=== PATIENT | female | born 1965 | race Caucasian/White ===

== ENCOUNTER 2016-10-09 20:29 | Emergency (ER) | payer OTHER ==
[~2016-10-09 20:29] MED LIST: CETIRIZINE HCL10 MG PO; ELAVIL 50 MG TA50 MG PO; FUROSEMIDE40 MG PO; GLUCOPHAGE1000 MG PO; HUMULIN R100 UNITS/ SQ; HYDROCHLOROTHIA25 MG PO; IMDUR ER TAB 3030 MG PO; JANUVIA 100 MG100 MG PO; LISINOPRIL-HCT1 EACH PO; LOPRESSOR 50 MG50 MG PO; METHOCARBAMOL750 MG PO; METOCLOPRAMIDE10 MG PO; NEURONTIN 400400 MG PO; NORVASC 5 MG TAB5 MG PO; PANTOPRAZOLE SO40 MG PO; PRAVASTATIN SOD20 MG PO; TIZANIDINE HCL4 MG PO; TOPIRAMATE100 MG PO; TRAZODONE HCL150 MG PO; VISTARIL 50 MG50 MG PO
[2017-03-09] MEDS ORDERED: METHOCARBAMOL750 MG PO (04:40)
[2017-03-09] MEDS ORDERED: XARELTO20 MG PO (04:46)
[2017-03-10] MEDS ORDERED: FERROUS SULFAT325 M2 PO (22:26)
[2017-03-10] MEDS ORDERED: ULTRAM50 MG PO (22:26)
[2017-03-10] MEDS ORDERED: LISINOPRIL-HCT1 EACH PO (22:50)
== END 2016-10-09 22:30 | disposition left against medical advice (07) ==
LOC: ER1 20:29
DX: Z53.21 Procedure and treatment not carried out due to patient leaving prior to being seen by health care provider (principal)
CPT/HCPCS: 93005

== ENCOUNTER 2016-10-20 20:59 | Observation (INO) | payer OTHER ==
[~2016-10-20] VITALS: Ht 170.2 cm; Wt 131.5 kg
[2016-10-20 23:23] LABS: HEMOGLOBIN 10.5 gm/dl (12.3-15.3); RED BLOOD COUNT 4.72 M/UL (4.00-5.10)
[2016-10-20 23:37] LABS: BUN/CREATININE RATIO 14 (0-10)
[2016-10-21] MEDS ORDERED: ALPRAZOLAM0.5 MG PO (11:54)
[2016-10-21] MEDS ORDERED: BUSPIRONE HCL15 MG PO (12:03)
[2016-10-21] MEDS ORDERED: LORTAB 10-3251 EACH PO (12:04)
[2016-10-21] MEDS ORDERED: SYNTHROID150 MCG PO (12:04)
[2016-10-21] MEDS ORDERED: ZOFRAN4 MG PO (12:06)
[2016-10-22 05:21] LABS: HEMOGLOBIN 9.6 gm/dl (12.3-15.3); RED BLOOD COUNT 4.38 M/UL (4.00-5.10); WHITE BLOOD COUNT 6.5 K/UL (4.5-11.0)
[2016-10-22 05:39] LABS: BUN/CREATININE RATIO 15 (0-10)
[2016-10-23] MEDS ORDERED: XARELTO20 MG PO (17:14)
[2016-10-23] MEDS ORDERED: ASPIR 8181 MG PO (17:14)
[2017-03-09] MEDS ORDERED: METHOCARBAMOL750 MG PO (04:40)
[2017-03-09] MEDS ORDERED: XARELTO20 MG PO (04:46)
[2017-03-10] MEDS ORDERED: ULTRAM50 MG PO (22:26)
[2017-03-10] MEDS ORDERED: FERROUS SULFAT325 M2 PO (22:26)
[2017-03-10] MEDS ORDERED: LISINOPRIL-HCT1 EACH PO (22:50)
== END 2016-10-23 18:00 | disposition home or self-care (01) ==
LOC: ER1 20:59 → ZEROF 10-21 02:00 → MED SURG 4 10-21 02:00
PROVIDERS: Emergency Medicine; Family Medicine; ADMIT Internal Medicine
DX: R53.1 Weakness (principal); R47.81 Slurred speech; E66.9 Obesity, unspecified; I10 Essential (primary) hypertension; E11.9 Type 2 diabetes mellitus without complications; E78.5 Hyperlipidemia, unspecified; I48.0 Paroxysmal atrial fibrillation; Z86.69 Personal history of other diseases of the nervous system and sense organs; Z88.0 Allergy status to penicillin; Z88.2 Allergy status to sulfonamides; Z88.8 Allergy status to other drugs, medicaments and biological substances; Z90.49 Acquired absence of other specified parts of digestive tract; Z90.710 Acquired absence of both cervix and uterus; Z96.653 Presence of artificial knee joint, bilateral; Z98.890 Other specified postprocedural states
CPT/HCPCS: 36415; 70450; 71010; 80048; 80053; 80061; 82607; 82962; 83690; 83880; 84439; 84443; 84484; 85025; 85027; 85610; 85730; 92610; 93005; 96372; 96374; 96375; 96376; 97110; 97116; 97530; 99285; G0378; J1642; J1650; J1815; J2270; J2405; Q0177

== ENCOUNTER 2020-08-07 15:23 | Emergency (ER) | payer OTHER ==
[~2020-08-07 15:23] MED LIST changes: +ALPRAZOLAM0.5 MG PO; +AMBIEN10 MG PO; +AMITRIPTYLINE100 MG PO; +ANUSOL HC SUPP1 SUPP PR; +ASPIR 8181 MG PO; +ATORVASTATIN CA20 MG PO; +BENTYL 20MG TAB20 MG PO; +BLOOD TEST; +BUSPAR 10MG10 MG PO; +BUSPIRONE HCL15 MG PO; +CARDIZEM CD240 MG PO; +CARDIZEM CD300 MG PO; +CIPRO500 MG PO; +CLARITIN10 MG PO; +COLACE 100MG C100 MG PO; +COREG 25MG TAB25 MG PO; +DECADRON6 MG PO; +DOCUSATE SODIU250 MG PO; +ESTRACE1 MG PO; +ESTRACE2 MG PO; +FEOSOL325 MG PO; +FERROUS SULFAT325 M2 PO; +FLAGYL500 MG PO; +GABAPENTIN400 MG PO; +HUMALOG MI100 UNIT/3 SQ; +HUMULIN R500 UNIT/1 SC; +HYDROCODON-ACE1 EAC4 PO; +HYDROXYZINE HCL50 MG PO; +IBUPROFEN800 MG PO; +JANUVIA100 MG PO; +KEFLEX CAP 500500 MG PO; +LASIX20 MG PO; +LASIX40 MG PO; +LEVAQUIN500 MG PO; +LOPID TAB 600600 MG PO; +LOPRESSOR50 MG PO; +LORTAB 10-3251 EACH PO; +LORTAB 5-325 M1 EACH PO; +MEDROL4 MG PO; +MOVANTIK25 MG PO; +NEURONTIN 300300 MG PO; -NEURONTIN 400400 MG PO; +NEURONTIN400 MG PO; +NITROSTAT0.4 MG SL; +NORCO 5-325 TA1 EACH PO; +NOVOLIN 70100 UNIT/1 SQ; +PERCOCET 10-321 EACH PO; +PERCOCET 5-3251 EACH PO; +PERCOCET 5/325 T1 EA PO; +PHENERGAN 25 MG25 M1 PO; +PREDNISONE 50 M50 MG PO; +PRINIVIL10 MG PO; +PRINIVIL20 MG PO; +PRINIVIL5 MG PO; +PROTONIX40 MG PO; +RANEXA500 MG PO; +REGLAN10 MG PO; +RISPERDAL2 MG PO; +ROBAXIN-750750 MG PO; +STOOL SOFTENER250 MG PO; +SYNTHROID150 MCG PO; +SYNTHROID200 MCG PO; +THERAGRAN M TAB1 EA PO; +TOPAMAX100 MG PO; +ULTRAM50 MG PO; +VENTOLIN HFA 66.7 GM INH; +Voltaren Gel 1% TOP; +XARELTO 10 MG T10 MG PO; +XARELTO 15 MG T15 MG PO; +XARELTO10 MG PO; +XARELTO20 MG PO; +ZITHROMAX500 MG PO; +ZOFRAN ODT 4 MG4 MG PO; +ZOFRAN ODT4 MG PO; +ZOFRAN4 MG PO; +ZYRTEC10 MG PO; +[UNRECOGNIZED DRUG - OTHER] SQ
== END 2020-08-07 17:12 | disposition left against medical advice (07) ==
LOC: ER1 15:23
DX: U07.1 COVID-19 (principal); Z53.21 Procedure and treatment not carried out due to patient leaving prior to being seen by health care provider

== ENCOUNTER 2020-09-17 15:03 | Emergency (ER) | payer OTHER ==
[2020-09-17] MEDS ORDERED: CEPHALEXIN500 M1 PO (17:37)
[2020-09-17] MEDS ORDERED: ONDANSETRON ODT4 MG SL (17:38)
== END 2020-09-17 17:48 | disposition home or self-care (01) ==
LOC: ER1 15:03
DX: L03.116 Cellulitis of left lower limb (principal); M79.662 Pain in left lower leg; Z79.01 Long term (current) use of anticoagulants; I10 Essential (primary) hypertension; I48.91 Unspecified atrial fibrillation; E11.9 Type 2 diabetes mellitus without complications; Z96.652 Presence of left artificial knee joint; Z88.0 Allergy status to penicillin; Z88.6 Allergy status to analgesic agent; Z88.2 Allergy status to sulfonamides
CPT/HCPCS: 73590; 93971; 99284

== ENCOUNTER → 2020-12-03 | Outpatient (CLI) | payer OTHER ==
[~2020-12-03] MED LIST changes: +CEPHALEXIN500 M1 PO; +CYCLOBENZAPRINE5 MG PO; +HYDROCODON-ACE1 EAC6 PO; +LINZESS145 MCG PO; +ONDANSETRON ODT4 MG SL; +PREDNISONE 20 M20 MG PO
[2020-12-03 12:01] LABS: BUN/CREATININE RATIO 22 (0-10)
[2020-12-04 10:14] LABS: CREATININE, URINE 14.4 mg/dL (Not Estab.)
== END ==
LOC: LAB 11:00
PROVIDERS: Internal Medicine
DX: E11.40 Type 2 diabetes mellitus with diabetic neuropathy, unspecified (principal)
CPT/HCPCS: 36415; 80048; 80061; 82043; 82570; 82607; 84443

== ENCOUNTER 2020-12-13 16:07 | Emergency (ER) | payer OTHER ==
[~2020-12-13 16:07] MED LIST changes: -CYCLOBENZAPRINE5 MG PO; -HYDROCODON-ACE1 EAC6 PO; -LINZESS145 MCG PO; -PREDNISONE 20 M20 MG PO
[2020-12-13] MEDS ORDERED: PREDNISONE 20 M20 MG PO (21:13)
[2020-12-13] MEDS ORDERED: CYCLOBENZAPRINE5 MG PO (21:13)
== END 2020-12-13 21:21 | disposition home or self-care (01) ==
LOC: ER1 16:07
DX: M51.16 Intervertebral disc disorders with radiculopathy, lumbar region (principal); E11.9 Type 2 diabetes mellitus without complications; I48.91 Unspecified atrial fibrillation; E03.9 Hypothyroidism, unspecified; Z90.49 Acquired absence of other specified parts of digestive tract; Z90.710 Acquired absence of both cervix and uterus; Z88.6 Allergy status to analgesic agent; Z88.2 Allergy status to sulfonamides; Z88.0 Allergy status to penicillin
CPT/HCPCS: 72131; 96372; 99283; J1100; J1885; J2270

== ENCOUNTER 2021-01-03 13:14 | Emergency (ER) | payer OTHER ==
[~2021-01-03 13:14] MED LIST changes: +CYCLOBENZAPRINE5 MG PO; +PREDNISONE 20 M20 MG PO
== END 2021-01-03 13:45 | disposition home or self-care (01) ==
LOC: ER1 13:14
DX: H53.8 Other visual disturbances (principal); R51.9 Headache, unspecified; R11.2 Nausea with vomiting, unspecified; E11.9 Type 2 diabetes mellitus without complications; I48.91 Unspecified atrial fibrillation; Z90.710 Acquired absence of both cervix and uterus; Z90.49 Acquired absence of other specified parts of digestive tract; Z88.6 Allergy status to analgesic agent; Z88.0 Allergy status to penicillin; Z88.2 Allergy status to sulfonamides
CPT/HCPCS: 99283

== ENCOUNTER 2021-01-05 20:43 | Emergency (ER) | payer OTHER ==
[2021-01-05] MEDS ORDERED: HYDROCODON-ACE1 EAC6 PO (22:42)
[2021-01-05 22:43] LABS: HEMOGLOBIN 12.3 gm/dl (12.3-15.3); RED BLOOD COUNT 4.36 M/UL (4.00-5.10); WHITE BLOOD COUNT 6.3 K/UL (4.5-11.0)
[2021-01-05 23:06] LABS: BUN/CREATININE RATIO 18 (0-10)
== END 2021-01-05 23:06 | disposition home or self-care (01) ==
LOC: ER1 20:43
PROVIDERS: Family Medicine
DX: G91.9 Hydrocephalus, unspecified (principal); H53.8 Other visual disturbances; I10 Essential (primary) hypertension; I48.91 Unspecified atrial fibrillation
CPT/HCPCS: 80053; 85025; 96372; 99283; J2270; J2550

== ENCOUNTER 2021-02-03 16:33 | Observation (INO) | payer OTHER ==
[~2021-02-03] VITALS: Ht 170.2 cm; Wt 128.4 kg
[~2021-02-03 16:33] MED LIST changes: +HYDROCODON-ACE1 EAC6 PO
[2021-02-03 17:34] LABS: HEMOGLOBIN 13.1 gm/dl (12.3-15.3); RED BLOOD COUNT 4.85 M/UL (4.00-5.10); WHITE BLOOD COUNT 8.5 K/UL (4.5-11.0)
[2021-02-03 17:52] LABS: BUN/CREATININE RATIO 22 (0-10)
[2021-02-03] MEDS ORDERED: LINZESS145 MCG PO ×2 (20:54→20:55)
[2021-02-04 00:32] LABS: HEMOGLOBIN 12.3 gm/dl (12.3-15.3); RED BLOOD COUNT 4.52 M/UL (4.00-5.10); WHITE BLOOD COUNT 8.1 K/UL (4.5-11.0)
[2021-02-04 00:51] LABS: BUN/CREATININE RATIO 18 (0-10)
--- NOTE | 2021-02-04 04:46 | NUR ---
02/03/21 AT 2350- PT COMPLAINING OF CHEST PAIN AND PRESURE. 2350 HEART RATE 85, 98% OXYGEN SATURATION, 105/65 BLOOD PRESSURE, 18 RESPIRATIONS. 235 ADMINISTERED 0.4 MG OF NITRO SUBLINGUALLY. 2355- HEART RATE 92, RESPIRATIONS 18, BLOOD PRESSURE 95/61, 96% OXYGEN SATURATION. 235 BLOOD PRESSURE 106/67, HEART RATE 92. PATIENT COMPLAINING OF CHEST PAIN AND PRESSURE STILL. 0000- ADMINISTERED SECOND DOSE OF NITRO SUBLINGUALLY. 0005- HEART RATE 92, 97% OXYGEN SATURATION, 103/62 BLOOD PRESSURE. PATIENT RATED PAIN 3/10. NOTIFIED MD, ORDERED STAT EKG AND CARDIAC LABS. 0107- NOTIFIED MD OF EKG AND CARDIAC LAB RESULTS.
[2021-02-05] MEDS ORDERED: RANEXA500 MG PO (11:32)
[2021-02-05] MEDS ORDERED: XARELTO20 MG PO (11:32)
== END 2021-02-05 13:04 | disposition home or self-care (01) ==
LOC: ER1 16:33 → CDU 18:18 → MED SURG 4 18:18
PROVIDERS: Emergency Medicine; ADMIT Internal Medicine
DX: R07.89 Other chest pain (principal); E87.6 Hypokalemia; E11.65 Type 2 diabetes mellitus with hyperglycemia; I48.0 Paroxysmal atrial fibrillation; E66.01 Morbid (severe) obesity due to excess calories; I25.2 Old myocardial infarction; I10 Essential (primary) hypertension; E78.5 Hyperlipidemia, unspecified; Z88.0 Allergy status to penicillin; Z88.2 Allergy status to sulfonamides; Z88.6 Allergy status to analgesic agent; Z87.728 Personal history of other specified (corrected) congenital malformations of nervous system and sense organs; Z79.891 Long term (current) use of opiate analgesic; Z79.84 Long term (current) use of oral hypoglycemic drugs; Z79.899 Other long term (current) drug therapy; Z20.822 Contact with and (suspected) exposure to COVID-19
CPT/HCPCS: ECHO; 36415; 71045; 78452; 80048; 80053; 80061; 82550; 82553; 82962; 83036; 83735; 83874; 84439; 84443; 84484; 85025; 85027; 85610; 93005; 93017; 93306; 96374; 96375; 96376; 99285; A9502; G0378; J2270; J2405; J2785; J7030; U0002

== ENCOUNTER → 2021-02-20 | Outpatient (CLI) | payer OTHER ==
[~2021-02-20] MED LIST changes: +CYCLOBENZAPRINE10 MG PO; +LINZESS145 MCG PO
== END ==
LOC: HEART 5 14:57
DX: R00.2 Palpitations (principal)

== ENCOUNTER 2021-03-31 15:19 | Emergency (ER) | payer OTHER ==
[~2021-03-31 15:19] MED LIST changes: -CYCLOBENZAPRINE10 MG PO
== END 2021-03-31 16:10 | disposition home or self-care (01) ==
LOC: ER1 15:19
DX: M54.5 Low back pain (principal); M79.605 Pain in left leg; E11.9 Type 2 diabetes mellitus without complications; I10 Essential (primary) hypertension; E03.9 Hypothyroidism, unspecified; E78.5 Hyperlipidemia, unspecified; Z88.0 Allergy status to penicillin; Z88.8 Allergy status to other drugs, medicaments and biological substances
CPT/HCPCS: 99283

== ENCOUNTER 2021-04-05 16:08 | Emergency (ER) | payer OTHER ==
[2021-04-05] MEDS ORDERED: CYCLOBENZAPRINE10 MG PO (16:33)
== END 2021-04-05 16:48 | disposition home or self-care (01) ==
LOC: ER1 16:08
DX: M54.42 Lumbago with sciatica, left side (principal); I48.91 Unspecified atrial fibrillation; E11.9 Type 2 diabetes mellitus without complications; Z90.710 Acquired absence of both cervix and uterus; Z88.0 Allergy status to penicillin; Z88.6 Allergy status to analgesic agent
CPT/HCPCS: 96372; 99283; J1100; J1885

== ENCOUNTER → 2021-06-05 | Outpatient (CLI) | payer OTHER ==
[~2021-06-05] MED LIST changes: +CYCLOBENZAPRINE10 MG PO
== END ==
LOC: EXRD 15:11
DX: M79.604 Pain in right leg (principal)
CPT/HCPCS: 93971

== ENCOUNTER 2021-09-05 16:32 | Emergency (ER) | payer OTHER ==
[2021-09-05] MEDS ORDERED: IBUPROFEN800 MG PO (17:37)
[2021-09-05] MEDS ORDERED: CYCLOBENZAPRINE5 MG PO (17:37)
== END 2021-09-05 18:01 | disposition home or self-care (01) ==
LOC: ER1 16:32
DX: M54.41 Lumbago with sciatica, right side (principal); Z87.39 Personal history of other diseases of the musculoskeletal system and connective tissue; E11.9 Type 2 diabetes mellitus without complications; I10 Essential (primary) hypertension; I48.91 Unspecified atrial fibrillation; Z88.0 Allergy status to penicillin; Z88.6 Allergy status to analgesic agent; Z88.2 Allergy status to sulfonamides
CPT/HCPCS: 96372; 99283; J1100; J2270

== ENCOUNTER 2022-01-12 16:17 | Observation (INO) | payer OTHER ==
[~2022-01-12] VITALS: Ht 170.2 cm; Wt 127.9 kg
[~2022-01-12 16:17] MED LIST changes: -AMITRIPTYLINE100 MG PO; +AMITRIPTYLINE150 MG PO; -BUSPAR 10MG10 MG PO; +LISINOPRIL20 MG PO; +METFORMIN HCL1000 MG PO; -PRINIVIL20 MG PO; +ROBAXIN 750 MG750 MG PO
[2022-01-12 17:39] LABS: HEMOGLOBIN 13.2 gm/dl (12.3-15.3); RED BLOOD COUNT 4.84 M/UL (4.00-5.10); WHITE BLOOD COUNT 7.8 K/UL (4.5-11.0)
[2022-01-12 17:51] LABS: BUN/CREATININE RATIO 20 (0-10)
[2022-01-13] MEDS ORDERED: ATORVASTATIN CA40 MG PO (11:38)
[2022-01-13] MEDS ORDERED: FARXIGA10 MG PO (11:44)
[2022-01-13] MEDS ORDERED: GEMFIBROZIL600 MG PO (11:49)
[2022-01-13] MEDS ORDERED: BUPROPION HCL75 MG PO (11:50)
[2022-01-13] MEDS ORDERED: MIRTAZAPINE30 MG PO (11:53)
[2022-01-13] MEDS ORDERED: PROTONIX40 MG PO (11:54)
[2022-01-13] MEDS ORDERED: VITAMIN D21250 MCG PO (11:57)
[2022-01-13] MEDS ORDERED: LEVOTHYROXINE300 MCG PO (11:59)
[2022-01-13] MEDS ORDERED: ISOSORBIDE MONO30 MG PO (12:02)
[2022-01-13] MEDS ORDERED: AMITIZA 24 MCG24 MCG PO (12:06)
[2022-01-13] MEDS ORDERED: METOPROLOL TART50 MG PO (12:07)
[2022-01-13] MEDS ORDERED: HUMULIN R500 UNIT/1 SC (12:12)
[2022-01-13] MEDS ORDERED: OZEMPIC1 MG/0.71 SQ (12:16)
== END 2022-01-13 15:00 | disposition home or self-care (01) ==
LOC: ER1 16:17 → CDU 20:27 → MED SURG 4 20:27
PROVIDERS: Physician Assistant; ADMIT Internal Medicine
DX: R07.89 Other chest pain (principal); G43.909 Migraine, unspecified, not intractable, without status migrainosus; I12.9 Hypertensive chronic kidney disease with stage 1 through stage 4 chronic kidney disease, or unspecified chronic kidney disease; N18.9 Chronic kidney disease, unspecified; I48.0 Paroxysmal atrial fibrillation; E11.22 Type 2 diabetes mellitus with diabetic chronic kidney disease; E11.43 Type 2 diabetes mellitus with diabetic autonomic (poly)neuropathy; K31.84 Gastroparesis; D64.9 Anemia, unspecified; I85.00 Esophageal varices without bleeding; E66.01 Morbid (severe) obesity due to excess calories; I25.10 Atherosclerotic heart disease of native coronary artery without angina pectoris; E03.9 Hypothyroidism, unspecified; E78.5 Hyperlipidemia, unspecified; Z79.4 Long term (current) use of insulin; Z79.01 Long term (current) use of anticoagulants; Z79.84 Long term (current) use of oral hypoglycemic drugs; Z79.899 Other long term (current) drug therapy; Z86.73 Personal history of transient ischemic attack (TIA), and cerebral infarction without residual deficits; Z88.0 Allergy status to penicillin; Z88.2 Allergy status to sulfonamides; Z88.6 Allergy status to analgesic agent
CPT/HCPCS: 70450; 71045; 80053; 82550; 82553; 82962; 83605; 84484; 85025; 93005; 96374; 96375; 96376; 99285; G0378; J1170; J1885; J2270; J2550; J2765

== ENCOUNTER → 2022-02-18 | Outpatient (CLI) | payer OTHER ==
[~2022-02-18] MED LIST changes: +AMITIZA 24 MCG24 MCG PO; +ATORVASTATIN CA40 MG PO; +BUPROPION HCL75 MG PO; +FARXIGA10 MG PO; +GEMFIBROZIL600 MG PO; +ISOSORBIDE MONO30 MG PO; +LEVOTHYROXINE300 MCG PO; +METOPROLOL TART50 MG PO; +MIRTAZAPINE30 MG PO; +OZEMPIC1 MG/0.71 SQ; +VITAMIN D21250 MCG PO
== END ==
LOC: KOH-I 11:38
DX: M25.561 Pain in right knee (principal)
CPT/HCPCS: 73564

== ENCOUNTER → 2022-03-17 | Outpatient (CLI) | payer OTHER | LOC: KOH-I 14:02 | DX: M25.552 Pain in left hip (principal) | CPT/HCPCS: 73502 ==

== ENCOUNTER 2022-03-26 14:42 | Emergency (ER) | payer OTHER | END 2022-03-26 17:10 | disposition home or self-care (01) | LOC: ER1 14:42 | DX: M25.552 Pain in left hip (principal); I10 Essential (primary) hypertension; E11.9 Type 2 diabetes mellitus without complications | CPT/HCPCS: 72170; 73552; 99283 ==

== ENCOUNTER 2022-04-03 17:59 | Emergency (ER) | payer OTHER | END 2022-04-03 19:14 | disposition left against medical advice (07) | LOC: ER1 17:59 | DX: Z53.21 Procedure and treatment not carried out due to patient leaving prior to being seen by health care provider (principal) ==

== ENCOUNTER 2022-04-04 10:54 | Emergency (ER) | payer OTHER ==
[2022-04-04 13:01] LABS: HEMOGLOBIN 13.3 gm/dl (12.3-15.3); RED BLOOD COUNT 5.02 M/UL (4.00-5.10); WHITE BLOOD COUNT 7.6 K/UL (4.5-11.0)
[2022-04-04 13:29] LABS: BUN/CREATININE RATIO 24 (0-10)
== END 2022-04-04 15:47 | disposition home or self-care (01) ==
LOC: ER1 10:54
PROVIDERS: Nurse Practitioner
DX: M25.552 Pain in left hip (principal); I10 Essential (primary) hypertension; I48.91 Unspecified atrial fibrillation; E11.9 Type 2 diabetes mellitus without complications; Z88.0 Allergy status to penicillin; Z88.2 Allergy status to sulfonamides; Z88.6 Allergy status to analgesic agent; Z96.653 Presence of artificial knee joint, bilateral
CPT/HCPCS: 72192; 73700; 80053; 85025; 96372; 99284; J2270

== ENCOUNTER 2022-04-14 11:34 | Observation (INO) | payer OTHER ==
[~2022-04-14] VITALS: Ht 170.2 cm; Wt 127.9 kg
[~2022-04-14 11:34] MED LIST changes: -DOCUSATE SODIU250 MG PO; -RISPERDAL2 MG PO; +RISPERDAL3 MG PO
[2022-04-14 12:50] LABS: HEMOGLOBIN 13.5 gm/dl (12.3-15.3); RED BLOOD COUNT 5.02 M/UL (4.00-5.10); WHITE BLOOD COUNT 7.4 K/UL (4.5-11.0)
[2022-04-14 13:17] LABS: BUN/CREATININE RATIO 22 (0-10)
[2022-04-14] MEDS ORDERED: ELIQUIS5 MG PO (15:34)
[2022-04-14] MEDS ORDERED: LISINOPRIL-HCT1 EAC1 PO (15:35)
[2022-04-14] MEDS ORDERED: MOUNJARO2.5 MG/0.5 SQ (15:35)
[2022-04-14] MEDS ORDERED: METOPROLOL TART25 MG PO (15:36)
[2022-04-14] MEDS ORDERED: HYOSCYAMINE0.375 M1 PO (15:38)
[2022-04-14] MEDS ORDERED: SUCRALFATE1 GM PO (15:38)
[2022-04-14] MEDS ORDERED: GLUCOTROL XL2.5 MG PO (15:39)
[2022-04-14] MEDS ORDERED: VITAMIN B-121000 MCG PO (15:39)
[2022-04-14] MEDS ORDERED: TYLENOL EXTRA500 MG PO (15:39)
[2022-04-15 03:42] LABS: RED BLOOD COUNT 4.72 M/UL (4.00-5.10)
[2022-04-15 04:17] LABS: BUN/CREATININE RATIO 18 (0-10)
[2022-04-16 03:23] LABS: HEMOGLOBIN 12.5 gm/dl (12.3-15.3); RED BLOOD COUNT 4.74 M/UL (4.00-5.10); WHITE BLOOD COUNT 7.6 K/UL (4.5-11.0)
[2022-04-16 03:54] LABS: BUN/CREATININE RATIO 21 (0-10)
[2022-04-16] MEDS ORDERED: ELIQUIS5 MG PO (14:57)
== END 2022-04-16 16:53 | disposition home or self-care (01) ==
LOC: ER1 11:34 → M/S 14:10 → CDU 14:10 → M/S 16:40
PROVIDERS: Internal Medicine; Physician Assistant; Physician Assistant Medical; ADMIT Internal Medicine Infectious Disease
DX: R07.89 Other chest pain (principal); I25.10 Atherosclerotic heart disease of native coronary artery without angina pectoris; I48.0 Paroxysmal atrial fibrillation; E03.9 Hypothyroidism, unspecified; E11.43 Type 2 diabetes mellitus with diabetic autonomic (poly)neuropathy; K31.84 Gastroparesis; I10 Essential (primary) hypertension; D64.9 Anemia, unspecified; E78.5 Hyperlipidemia, unspecified; K21.9 Gastro-esophageal reflux disease without esophagitis; E66.01 Morbid (severe) obesity due to excess calories; Z68.41 Body mass index [BMI] 40.0-44.9, adult; Z79.4 Long term (current) use of insulin; Z79.01 Long term (current) use of anticoagulants; Z79.84 Long term (current) use of oral hypoglycemic drugs; Z79.899 Other long term (current) drug therapy; Z86.73 Personal history of transient ischemic attack (TIA), and cerebral infarction without residual deficits; Z88.0 Allergy status to penicillin; Z88.2 Allergy status to sulfonamides; Z88.6 Allergy status to analgesic agent
CPT/HCPCS: 36415; 71045; 78452; 80048; 80053; 82550; 82553; 82962; 83735; 84100; 84484; 85025; 85027; 93005; 93017; 96374; 99285; A9502; G0378; J2270; J2785